=== PATIENT | female | born 1955 | race Caucasian/White ===

== ENCOUNTER 2021-01-12 07:12 | Emergency (ER) | payer OTHER, MEDICARE ==
[~2021-01-12] VITALS: Ht 162.6 cm; Wt 70.3 kg
[~2021-01-12 07:12] MED LIST: B Complex1 EAC2 PO; POTASSIUM; POTASSIUM PO; TEMA30 PO; TUMERIC PO; UBID10 PO; VITAMIN D5000 UNIT PO
[2021-01-12] MEDS ORDERED: Norco 5-325 Ta1 EACH PO (09:37)
== END 2021-01-12 10:20 | disposition home or self-care (01) ==
LOC: ER 07:12
DX: S20.211A Contusion of right front wall of thorax, initial encounter (principal); Z88.5 Allergy status to narcotic agent; Z88.8 Allergy status to other drugs, medicaments and biological substances; V43.63XA Car passenger injured in collision with pick-up truck in traffic accident, initial encounter; Y92.410 Unspecified street and highway as the place of occurrence of the external cause
CPT/HCPCS: 71101; 99283-25